=== PATIENT | male | born 1995 | race American Indian/Alaskan Native ===

== ENCOUNTER 2018-04-03 10:56 | Emergency (ER) | payer MEDICAID, OTHER ==
[2018-04-03] MEDS ORDERED: ATIVAN IM PRN (11:10)
[2018-04-03] MEDS ORDERED: HALDOL IM PRN (11:10)
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
[2018-04-03 11:44] LABS: Hematocrit 45.3 % (35.5-45.6); Hemoglobin 14.2 gm/dl (11.8-15.2); Mean Corpuscular HGB Conc 31 % (32-34); Platelet Count 221 K/mm3 (140-440); Red Blood Count 6.66 M/mm3 (3.65-5.03); Red Cell Distribution Width 17.4 % (13.2-15.2)
[2018-04-03 11:45] LABS: Bilirubin,Urine NEG (Negative); Blood,Urine NEG (Negative); Color,Urine Yellow (Yellow); Hyaline Casts,Urine 1 /LPF; Protein,Urine <15 mg/dL mg/dL (Negative); WBC,Urine < 1.0 /HPF (0.0-6.0)
[2018-04-03 11:55] LABS: Mean Corpuscular Volume 68 fl (84-94)
[2018-04-03 11:58] LABS: BUN/Creatinine Ratio 15; Blood Urea Nitrogen 15 mg/dL (9-20); Calcium 9.3 mg/dL (8.4-10.2); Hemolysis Index 9
[2018-04-03 11:58] LABS: Amphetamine Screen,Urine PRESUMPTIVE NEGATIVE; Benzodiazepines Screen,Urine PRESUMPTIVE NEGATIVE; Cannabinoid Screen,Urine PRESUMPTIVE NEGATIVE; Cocaine Screen,Urine PRESUMPTIVE NEGATIVE; Methadone Screen,Urine PRESUMPTIVE NEGATIVE; Opiate Screen,Urine PRESUMPTIVE NEGATIVE
[2018-04-05 04:51] VITALS: BP 109/70
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
--- NOTE | 2018-04-05 11:55 | Emergency Department Report ---
Blank Doc - Documentation Documentation: I have reviewed documentation. 1013 involuntary hold has been rescinded by the psychiatric team. I discussed discharge plan with treatment nurse. I have arranged discharge disposition order.
== END 2018-04-05 12:33 | disposition home or self-care (01) ==
LOC: EEVIPCON 10:56 → ED 10:56
DX: F39 Unspecified mood [affective] disorder (principal); F32.9 Major depressive disorder, single episode, unspecified; J45.909 Unspecified asthma, uncomplicated
CPT/HCPCS: 36415; 80048; 80178; 80307; 81001; 82550; 85027; 99284; G0480; 80320

== ENCOUNTER 2018-07-01 19:28 | Emergency (ER) | payer MEDICAID ==
[2018-07-01 20:07] VITALS: BP 130/85
--- NOTE | 2018-07-01 20:11 | Emergency Department Report ---
ED Medical Clearance HPI - General Chief complaint: Medical Clearance Stated complaint: MED REFILL/MH Time Seen by Provider: 07/01/18 20:07 Source: patient Mode of arrival: Ambulatory - History of Present Illness Initial comments: 22 y/o male just got discharge from [facility] without rx. Patient brings in his papers from that shows his discharge medication. Which is Depakote 500mg morning and bedtime. , Zyprexa 15 mg bid. Patient denies any SI/HI. Home medications: Home Medications Medication Instructions Recorded Confirmed Last Taken [place] Carbonate [Eskalith] 300 mg PO HS 04/03/18 04/03/18 Unknown Previous Rx's Medication Instructions Recorded Last Taken Type Divalproex Dr [DepaKOTE DR] 500 mg PO BID #60 tablet 07/01/18 Unknown Rx OLANZapine [Zyprexa] 15 mg PO BID #60 tablet 07/01/18 Unknown Rx Allergies/Adverse reactions: Allergies Allergy/AdvReac Type Severity Reaction Status Date / Time No Known Allergies Allergy Verified 05/09/17 21:28 ED Review of Systems ROS: Stated complaint: MED REFILL/MH Other details as noted in HPI Comment: All other systems reviewed and negative ED Past Medical Hx - Past Medical History Hx Psychiatric Treatment: Yes (depression) Hx Asthma: Yes - Social History Smoking Status: Never Smoker Substance Use Type: None - Medications Home Medications: Home Medications Medication Instructions Recorded Confirmed Last Taken Type [place] Carbonate [Eskalith] 300 mg PO HS 04/03/18 04/03/[address] [DepaKOTE DR] 500 mg PO BID #60 tablet 07/01/18 Unknown Rx OLANZapine [Zyprexa] 15 mg PO BID #60 tablet 07/01/18 Unknown Rx ED Physical Exam - General Limitations: No Limitations General appearance: alert, in no apparent distress - Head Head exam: Present: atraumatic, normocephalic - Eye Eye exam: Present: normal appearance - ENT ENT exam: Present: mucous membranes moist - Neurological Exam Neurological exam: Present: alert, oriented X3, normal gait - Psychiatric Psychiatric exam: Present: normal affect, normal mood. Absent: homicidal ideation, suicidal ideation - Skin Skin exam: Present: warm, dry, intact, normal color. Absent: rash ED Course Vital Signs 07/01/18 20:03 Temperature 99.8 F H Pulse Rate 105 H Respiratory 24 Rate Blood Pressure 130/85 O2 Sat by Pulse 97 Oximetry ED Disposition Clinical Impression: Medication refill Disposition: TO HOME OR SELFCARE Is pt being admited?: No Does the pt Need Aspirin: No Condition: Stable Additional Instructions: Take medications as prescribed. Keep follow up with mental Health. Prescriptions: Divalproex Dr [DepaKOTE DR] 500 mg PO BID #60 tablet OLANZapine [Zyprexa] 15 mg PO BID #60 tablet [facility]
== END 2018-07-01 20:50 | disposition home or self-care (01) ==
LOC: ED 19:28
DX: R56.9 Unspecified convulsions (principal); Z76.0 Encounter for issue of repeat prescription; J45.909 Unspecified asthma, uncomplicated
CPT/HCPCS: 99282

== ENCOUNTER 2018-07-05 17:34 | Emergency (ER) | payer MEDICAID, OTHER ==
[2018-07-05 19:11] LABS: Basophils % (Auto) 0.6 % (0.0-1.8); Eosinophils # (Auto) 0.2 K/mm3 (0.0-0.4); Eosinophils % (Auto) 3.2 % (0.0-4.3); Hemoglobin 13.1 gm/dl (11.8-15.2); Lymphocytes # (Auto) 1.6 K/mm3 (1.2-5.4); Lymphocytes % (Auto) 26.6 % (13.4-35.0); Mean Corpuscular HGB Conc 32 % (32-34); Monocytes % (Auto) 15.9 % (0.0-7.3); Platelet Count 172 K/mm3 (140-440); Red Cell Distribution Width 16.1 % (13.2-15.2)
[2018-07-05 19:14] LABS: Mean Corpuscular Volume 66 fl (84-94)
[2018-07-05 19:20] LABS: BUN/Creatinine Ratio 14; Blood Urea Nitrogen 14 mg/dL (9-20); Calcium 9.6 mg/dL (8.4-10.2); Hemolysis Index 16
[2018-07-05] MEDS ORDERED: HALDOL IM PRN (20:52)
[2018-07-05] MEDS ORDERED: ATIVAN IM PRN (20:52)
--- NOTE | 2018-07-05 20:53 | Emergency Department Report ---
ED Psych HPI - General Chief Complaint: Psych Stated Complaint: MH Time Seen by Provider: 07/05/18 18:12 Source: patient, EMS (ems notes not available at time of chart dictation), RN notes reviewed, old records reviewed Mode of arrival: Stretcher Limitations: Other (patient is psychotic and disorganized) - History of Present Illness Initial Comments: This is a 22-year-old gentleman. The patient is brought to the hospital for an evaluation by emergency medical services for psychiatric reasons. In the emergency room, the patient is smiling, singing, endorses no complaints. He reports that he is a celebrity, and that somebody had stolen his identity. He will not answer questions above homicidality or suicidality. He will not answer questions about overdose. He makes no indication as to whether or not he is having physical pain. However, he is smiling, engaging, follows some commands, is singing songs and watching TV in no acute distress. Currently, no friends are available at this time, there is no family available at this time for collateral information or additional history. Therefore, the patient cannot describe exacerbating or relieving factors, aggravation, radiation, or qualitative nature of his symptoms. MD Complaint: other -: unknown Associated Psychiatric Symptoms: other Quality: other Worsens With: other Associated Symptoms: other Treatments Prior to Arrival: other If Self Harm: other - Related Data Home Medications Medication Instructions Recorded Confirmed Last Taken [place] Carbonate [Eskalith] 300 mg PO HS 04/03/18 07/05/18 Unknown Previous Rx's Medication Instructions Recorded Last Taken Type Divalproex Dr [DepaKOTE DR] 500 mg PO BID #60 tablet 07/01/18 Unknown Rx OLANZapine [Zyprexa] 15 mg PO BID #60 tablet 07/01/18 Unknown Rx Allergies Allergy/AdvReac Type Severity Reaction Status Date / Time No Known Allergies Allergy Verified 07/01/18 20:27 ED Review of Systems ROS: Stated complaint: MH Other details as noted in HPI Comment: Unobtainable due to pts medical conditions ED Past Medical Hx - Past Medical History Previous Medical History?: Yes Hx Psychiatric Treatment: Yes (depression, schizophrenia) Hx Asthma: Yes - Surgical History Past Surgical History?: No - Social History Smoking Status: Unknown if ever smoked Substance Use Type: None - Medications Home Medications: Home Medications Medication Instructions Recorded Confirmed Last Taken Type [place] Carbonate [Eskalith] 300 mg PO HS 04/03/18 07/05/[address] [DepaKOTE DR] 500 mg PO BID #60 tablet 07/01/18 07/05/18 Unknown Rx OLANZapine [Zyprexa] 15 mg PO BID #60 tablet 07/01/18 07/05/18 Unknown Rx ED Physical Exam - General Limitations: Other (patient is psychotic, disorganized, speaking nonsensically) General appearance: alert, in no apparent distress - Head Head exam: Present: atraumatic, normocephalic - Eye Eye exam: Present: normal appearance, EOMI - ENT ENT exam: Present: normal exam, normal orophraynx, mucous membranes moist - Neck Neck exam: Present: normal inspection, full ROM. Absent: tenderness, meningismus - Respiratory Respiratory exam: Present: normal lung sounds bilaterally. Absent: respiratory distress - Cardiovascular Cardiovascular Exam: Present: regular rate, normal rhythm, normal heart sounds. Absent: bradycardia, tachycardia, irregular rhythm, systolic murmur, diastolic murmur, rubs, gallop - GI/Abdominal GI/Abdominal exam: Present: soft. Absent: distended, tenderness, guarding, rebound, rigid, pulsatile mass - Rectal Rectal exam: Present: deferred - Extremities Exam Extremities exam: Present: normal inspection, full ROM, other (2+ pulses noted in the bilateral upper, lower extremities. Compartments soft. No long bony tenderness. The pelvis is stable.). Absent: pedal edema, joint swelling, calf tenderness - Back Exam Back exam: Present: normal inspection, full ROM. Absent: tenderness, CVA tenderness (R), muscle spasm, paraspinal tenderness, vertebral tenderness - Neurological Exam Neurological exam: Present: alert, other (there is no facial droop. The tongue is midline. Extraocular movements are intact bilaterally. Patient singing in full complete sentences. Moving 4 extremities spontaneously. Walking with a steady gait. Detailed neurologic examination not possible to active psychosis at this time) - Psychiatric Psychiatric exam: Present: manic - Skin Skin exam: Present: warm, dry, intact, normal color. Absent: rash ED Course Vital Signs 07/05/18 07/05/18 18:11 19:05 Temperature 98.8 F 97.7 F Pulse Rate 74 Respiratory 20 Rate Blood Pressure 136/93 [Left] O2 Sat by Pulse 100 Oximetry ED Medical Decision Making - Lab Data Result diagrams: 07/05/18 18:47 07/05/18 18:47 Vital Signs 07/05/18 18:11 Temperature 98.8 F Lab Results 07/05/18 07/05/18 07/05/18 Range/Units 18:47 18:47 18:47 WBC (4.5-11.0) K/mm3 RBC (3.65-5.03) M/mm3 Hgb (11.8-15.2) gm/dl Hct (35.5-45.6) % MCV (84-94) fl MCH (28-32) pg MCHC (32-34) % RDW (13.2-15.2) % Plt Count (140-440) K/mm3 Lymph % (Auto) (13.4-35.0) % [place] % (Auto) (0.0-7.3) % Eos % (Auto) (0.0-4.3) % Baso % (Auto) (0.0-1.8) % Lymph # (1.2-5.4) K/mm3 [place] # (0.0-0.8) K/mm3 Eos # (0.0-0.4) K/mm3 Baso # (0.0-0.1) K/mm3 Seg Neutrophils % (40.0-70.0) % Seg Neutrophils # (1.8-7.7) K/mm3 Sodium 141 (137-145) mmol/L Potassium 4.2 (3.6-5.0) mmol/L Chloride 103.0 (98-107) mmol/L Carbon Dioxide 27 (22-30) mmol/L Anion Gap 15 mmol/L BUN 14 (9-20) mg/dL Creatinine 1.0 (0.8-1.5) mg/dL Estimated GFR > 60 ml/min BUN/Creatinine Ratio 14 % Glucose 98 (75-100) mg/dL Calcium 9.6 (8.4-10.2) mg/dL Total Creatine Kinase (55-170) units/L Salicylates < 0.3 L (2.8-20.0) mg/dL Acetaminophen < 5.0 L (10.0-30.0) ug/mL [place] 0.1 (0.0-1.2) mmol/L Plasma/Serum Alcohol (0-0.07) % 07/05/18 07/05/18 07/05/18 Range/Units 18:47 18:47 18:47 WBC 6.1 (4.5-11.0) K/mm3 RBC 6.20 H (3.65-5.03) M/mm3 Hgb 13.1 (11.8-15.2) gm/dl Hct 41.0 (35.5-45.6) % MCV 66 L (84-94) fl MCH 21 L (28-32) pg MCHC 32 (32-34) % RDW 16.1 H (13.2-15.2) % Plt Count 172 (140-440) K/mm3 Lymph % (Auto) 26.6 (13.4-35.0) % [place] % (Auto) 15.9 H (0.0-7.3) % Eos % (Auto) 3.2 (0.0-4.3) % Baso % (Auto) 0.6 (0.0-1.8) % Lymph # 1.6 (1.2-5.4) K/mm3 [place] # 1.0 H (0.0-0.8) K/mm3 Eos # 0.2 (0.0-0.4) K/mm3 Baso # 0.0 (0.0-0.1) K/mm3 Seg Neutrophils % 53.7 (40.0-70.0) % Seg Neutrophils # 3.3 (1.8-7.7) K/mm3 Sodium (137-145) mmol/L Potassium (3.6-5.0) mmol/L Chloride (98-107) mmol/L Carbon Dioxide (22-30) mmol/L Anion Gap mmol/L BUN (9-20) mg/dL Creatinine (0.8-1.5) mg/dL Estimated GFR ml/min BUN/Creatinine Ratio % Glucose (75-100) mg/dL Calcium (8.4-10.2) mg/dL Total Creatine Kinase 508 H (55-170) units/L Salicylates (2.8-20.0) mg/dL Acetaminophen (10.0-30.0) ug/mL [place] (0.0-1.2) mmol/L Plasma/Serum Alcohol < 0.01 (0-0.07) % Vital Signs 07/05/18 07/05/18 18:11 19:05 Temperature 98.8 F 97.7 F Pulse Rate 74 Respiratory 20 Rate Blood Pressure 136/93 [Left] O2 Sat by Pulse 100 Oximetry - Medical Decision Making Differential diagnosis, including but not limited to: Psychosis, mood disorder, suicidality, medical clearance for psychiatric placement Assessment and plan: 22-year-old gentleman who appears to be actively psychotic, singing, laughing, making nonsensical delusional statements about being of celebrity, and having his identity stolen. The patient was placed on a 1013. S creening laboratory studies are unremarkable. Psychiatric consultation has been obtained. At this point time, the patient has an unremarkable physical exam, unremarkable laboratory studies, and does not appear to have an immediate medical contraindication to psychiatric admission, evaluation, consultation and placement. The crisis psychiatric team has been informed. Critical care attestation.: If time is entered above; I have spent that time in minutes in the direct care of this critically ill patient, excluding procedure time. ED Disposition Clinical Impression: Psychosis Disposition: DC/TX-65 PSY HOSP/PSY UNIT Is pt being admited?: No Does the pt Need Aspirin: No Condition: Good Referrals: PRIMARY CARE, [Primary Care Provider] - 3-5 Days
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
[2018-07-06 13:55] LABS: Bilirubin,Urine NEG (Negative); Blood,Urine NEG (Negative); Color,Urine Yellow (Yellow); Mucus,Urine FEW /HPF; RBC,Urine < 1.0 /HPF (0.0-6.0)
[2018-07-06 14:02] LABS: Amphetamine Screen,Urine PRESUMPTIVE NEGATIVE; Benzodiazepines Screen,Urine PRESUMPTIVE NEGATIVE; Cannabinoid Screen,Urine PRESUMPTIVE NEGATIVE; Cocaine Screen,Urine PRESUMPTIVE NEGATIVE; Methadone Screen,Urine PRESUMPTIVE NEGATIVE; Opiate Screen,Urine PRESUMPTIVE NEGATIVE
[2018-07-06 15:35] LABS: Alanine Aminotransferase 19 units/L (7-56); Albumin 3.9 g/dL (3.9-5); Bilirubin,Direct < 0.2 mg/dL (0-0.2)
[2018-07-07] MEDS ORDERED: NACL 0.9% 1000 ML 1,000 ML ONE (06:35)
[2018-07-07] MEDS ORDERED: NACL 0.9% 1000 ML 1,000 ML IV ONE (06:40)
[2018-07-07 07:41] VITALS: BP 119/72
--- NOTE | 2018-07-07 10:40 | Progress Note ---
Subjective - Reason for Consult Consult date: 07/07/18 Reason for consult: Psychiatry Follow-up - Chief Complaint Chief complaint: "Someone stole my ID" 22 year old male who presented to the ER for acute psychosis. This patient is known to me. Today the patient is calm and cooperative, but tangent during the assessment. He is hyper verbal throughout the interview. He had to be redirected several times to keep him on topic. He is fixated on some one stealing his ID. He denies SI/HI's and VH's. He would not confirm or deny AH's. No indications of side effects of his medications. Mental Status Exam - Vital signs Last Vital Signs Temp 97.3 F L 07/07/18 07:40 Pulse 55 L 07/07/18 07:40 Resp 18 07/07/18 07:40 BP 119/72 07/07/18 07:40 Pulse Ox 99 07/07/18 07:40 - Exam Narrative exam: MSE: Appearance: calm, cooperative Behavior: regular eye contact Speech: hyper verbal Mood: "okay" Affect: euphoric Thought Process: tangential Thought Content: denies SI/HI's and VH's, grandiose, paranoia Motor Activity: laying in bed Cognition: A/O x 3 Insight: poor Judgment: poor Assessment and Plan Impression: Schizoaffective DO. Today the patient is calm and cooperative, but tangent dung the assessment. UDS is negative. DDx: Bipolar DO with psychosis Recommendation/Plan: Continue 1013. Dispo: The patient was accepted at [place] [facility] for inpatient psy services. Will staff with Dr. Haris Soto.
== END 2018-07-07 10:32 ==
LOC: ED 17:34 → EEVIPCON 17:34 → ED 07-07 10:32
DX: F25.9 Schizoaffective disorder, unspecified (principal); F32.9 Major depressive disorder, single episode, unspecified; F20.9 Schizophrenia, unspecified; J45.909 Unspecified asthma, uncomplicated
CPT/HCPCS: 36415; 80048; 80076; 80164; 80178; 80307; 81001; 82150; 82550; 83690; 85025; 99285; G0480; J7030; 80320

== ENCOUNTER 2021-12-09 16:42 | Emergency (ER) | payer MEDICAID ==
[2021-12-09 17:43] VITALS: BP 127/95
== END 2021-12-10 07:44 | disposition left against medical advice (07) ==
LOC: ED 16:42
DX: Z02.79 Encounter for issue of other medical certificate (principal); Z53.21 Procedure and treatment not carried out due to patient leaving prior to being seen by health care provider